=== PATIENT | female | born 1960 | race Caucasian/White ===

== ENCOUNTER → 2020-06-15 | Day surgery (SDC) | payer BC, OTHER | END | disposition home or self-care (01) | LOC: JRADIR 11:46 | PROVIDERS: ATTEND Internal Medicine Endocrinology, Diabetes & Metabolism | PROC: 0G9K3ZX Drainage of Thyroid Gland, Percutaneous Approach, Diagnostic (ICD-10-PCS; principal; 2020-06-15) | DX: E04.1 Nontoxic single thyroid nodule (principal) | CPT/HCPCS: 76942; 88173; 88305-TC ==